=== PATIENT | female | born 1995 | race Caucasian/White ===

== ENCOUNTER 2018-07-09 11:48 | Emergency (ER) | payer BC ==
[~2018-07-09] VITALS: Ht 165.1 cm; Wt 50.1 kg
[2018-07-09 12:04] VITALS: BP 105/63
[2018-07-09] MEDS ORDERED: TAM75C PO (14:06)
== END 2018-07-09 14:57 | disposition home or self-care (01) ==
LOC: ER 11:49
DX: J09.X2 Influenza due to identified novel influenza A virus with other respiratory manifestations (principal); Z79.899 Other long term (current) drug therapy
CPT/HCPCS: 87502; 87503; 99283